=== PATIENT | female | born 1965 | race African-American/Black ===

== ENCOUNTER 2023-04-09 03:22 | Emergency (ER) | payer OTHER ==
[~2023-04-09] VITALS: Ht 175.3 cm; Wt 84.0 kg
[2023-04-09 03:24] VITALS: O2SAT 98
[2023-04-09] MEDS ORDERED: KETOROLAC 60MG/2ML VIAL IM ONE (04:00)
[2023-04-09] MEDS ORDERED: LIDOCAINE 5% PATCH TOP ONE (04:00)
[2023-04-09] MEDS ORDERED: MED4 MT (06:05)
[2023-04-09] MEDS ORDERED: NAPR-677 MT (06:05)
[2023-04-09] MEDS ORDERED: BACL-141 MT (06:05)
[2023-04-09] MEDS ORDERED: ACET-2708 MT (06:05)
[2023-04-09 06:15] VITALS: BP 176/90; PULSE 75; RESP 20; TEMP 98.3
== END 2023-04-09 06:15 | disposition home or self-care (01) ==
LOC: ER 03:36
DX: S33.130A Subluxation of L3/L4 lumbar vertebra, initial encounter (principal); I10 Essential (primary) hypertension; V98.8XXA Other specified transport accidents, initial encounter; Y93.89 Activity, other specified; Y92.89 Other specified places as the place of occurrence of the external cause; Y99.8 Other external cause status
CPT/HCPCS: 99285; 72131; 96372; J1885